=== PATIENT | male | born 1990 | race Caucasian/White ===

== ENCOUNTER 2017-01-23 07:06 | Emergency (ER) | payer OTHER ==
[~2017-01-23] VITALS: Ht 180.3 cm; Wt 83.2 kg
[2017-01-23 07:09] VITALS: BP 129/74
[2017-01-23] MEDS ORDERED: KEFLEX500 MG PO (09:37)
== END 2017-01-23 09:30 ==
LOC: EME 07:06
DX: S01.511A Laceration without foreign body of lip, initial encounter (principal); S41.011A Laceration without foreign body of right shoulder, initial encounter; X99.9XXA Assault by unspecified sharp object, initial encounter; Y92.149 Unspecified place in prison as the place of occurrence of the external cause; Z23 Encounter for immunization
CPT/HCPCS: 71010; 99281; 99284